=== PATIENT | female | born 1955 | race Hispanic/Latino ===

== ENCOUNTER → 2023-09-30 | Emergency (ER) | payer MEDICARE ==
[~2023-09-30] MED LIST: ACETAMINOPHEN 500 MG TAB ONE; DIPHENHYDRAMINE 50 MG/ML VIAL ONE; KETOROLAC 30 MG/ML INJ ONE; METOCLOPRAMIDE 10 MG/2mL INJ ONE; NA CHLORIDE 0.9% 1,000 ML ONE
--- OUTSIDE RECORDS SUMMARY | 2023-09-30 09:29 | XMS REPORT | Continuity of Care Document ---
Author Name Unknown Address [address] [facility] [address] [place] [address] [facility] thconnect Address [address] [facility] [address] [place] [address] Care Team Providers Care Director Workforce Management Name Role Phone PCP, PATIENT DOES NOT HAVE A Primary Care Physic davey Unavailable CHUCK YANEZ Attending Clinician Unavailable WESTLEY KWON Attending Clinician Unavailable L_Vona Attending Clinician Unavailable Katlyn Carl Attending Clinician UNKNOWN, ATTENDING Attending Clinician Unavailab stacey AMBCLARISSA_CHIARAA Attending Clinician Unavailable FAUSTINO GARY Attending Clinician Unavailable Faustino Vaz Attending Clinician [phone] Chuck Yanez MD Attending Clinician [phone] Only, Adc Test Attending Clinician Unavailable Guy Wong MD Attending Clinician [phone] GUY WONG Attending Clinician Unavailabl e Doctor Unassigned, [place] Attending Clinician U navailable G_Pappas Attending Clinician Unavailable Lab, Adc Fam Pob I Attending Clinician Unavailab CHUCK Riley Admitting Clinician Unavailable Chris_Julio Admitting Clinician Unavailable JENI Admitting Clinician Unavailable Chuck Yanez MD Admitting Clinician [phone] G_Kenyon Admitting Clinician Unavailable Payers Payer Name Policy Type Policy Number Effective Date Expirati on Date Source [facility]/[employer] MEDICARE ADVANTAGE [id number] 2020 00:00:00 [facility] (MEDICARE REPLACEMENT HMO) [id number] 2022 00:00:00 [facility] [place] - MEDICARE SOLUTIONS - MEDICARE COMPLETE (MEDICARE REPLACEMENT PPO) [id number] Problems Condition Name Condition Details Condition Category Status Onset Date Resolution Date Last Treatment Date Treating Clinician Comments Source Screening for colorectal cancer Screening for colorectal cancer Disease Active 02-23 00:00: 00 Overview: Formattin g of this note might be different from the original. Added automatic ally from request for surgery [id number] [facility] Type 2 diabetes mellitus without complicati on Type 2 Diabetes Mellitus without Complicati on Problem Active 01-15 00:00: 00 [facility] Dyspareuni a Dyspareuni a Problem Active 01-15 00:00: 00 [facility] Atrophic vaginitis Atrophic Vaginitis Problem Active 01-15 00:00: 00 [facility] Allergies, Adverse Reactions, Alerts Allergy Name Allergy Type Status Severity Reaction(s) Onset Date Inactive Date Treating Clinician Comments Source NO KNOWN ALLERGIE S Drug Class Active [facility] Social History Social Habit Start Date Stop Date Quantity Comments Source Exposure to SARS-CoV-2 (event) Not sure [facility] Alcohol intake 2021-09-17 00:00:00 2021-09-17 00:00:00 Ex-drinker (finding) [facility] Tobacco use and exposure 2021-02-20 00:00:00 2021-02-20 00:00:00 Never used [facility] Sex Assigned At 1955 00:00:00 1955 00:00:00 [facility] Smoking Status Start Date Stop Date Source Never Smoker [facility] Medications Ordered Medication Name Filled Medication Name Start Date Stop Date Current Medication? Ordering Clinician Indication Dosage Frequency Signature (SIG) Comments Components Source methocarbam oL 500 mg tablet 09-17 00:00: 00 Yes [id number] 500mg Take 1 tablet by mouth 4 (four) times daily as needed for Pain (scale 4-6). [facility] naproxen 500 mg tablet 2020-07 012 10:07: 34 Yes naproxen 500 mg tablet [facility] losartan 25 mg tablet 2020-07 012 10:07: 34 Yes losartan 25 mg tablet TAKE 1 TABLET BY MOUTH ONCE DAILY FOR KIDNEY PROTECTION [facility] naproxen 500 mg tablet 2020-07 012 10:07: 34 Yes naproxen 500 mg tablet [facility] losartan 25 mg tablet 2020-07 012 10:07: 34 Yes losartan 25 mg tablet TAKE 1 TABLET BY MOUTH ONCE DAILY FOR KIDNEY PROTECTION [facility] naproxen 500 mg tablet 2020-07 0-12 10:07: 34 Yes naproxen 500 mg tablet [facility] losartan 25 mg tablet 2020-07 012 10:07: 34 Yes losartan 25 mg tablet TAKE 1 TABLET BY MOUTH ONCE DAILY FOR KIDNEY PROTECTION [facility] metFORMIN 1,000 mg tablet 710 00:00: 00 Yes 1000mg Take 1,000 mg by mouth 2 (two) times daily. [facility] TOUJEO MAX U-300 SOLOSTAR 300 unit/mL (3 mL) In 01-20 00:00: 00 Yes INJECT 40 UNITS SUBCUTANEO USLY ONCE DAILY [facility] metFORMIN 1,000 mg tablet 01-20 00:00: 00 Yes 1000mg Take 1,000 mg by mouth 2 (two) times daily. [facility] TOUJEO MAX U-300 SOLOSTAR 300 unit/mL (3 mL) In 01-20 00:00: 00 Yes INJECT 40 UNITS SUBCUTANEO USLY ONCE DAILY [facility] metFORMIN 1,000 mg tablet 01-20 00:00: 00 Yes 1000mg Take 1,000 mg by mouth 2 (two) times daily. [facility] TOUJEO MAX U-300 SOLOSTAR 300 unit/mL (3 mL) In 01-20 00:00: 00 Yes INJECT 40 UNITS SUBCUTANEO USLY ONCE DAILY [facility] levothyroxi ne 25 mcg tablet TAKE 1 TABLET BY MOUTH IN THE MORNING WITH A SIP OF WATER. WAIT 30 MINUTES BEFORE EATING OR DRINKING ANYTHING ELSE levothyroxi ne 25 mcg tablet TAKE 1 TABLET BY MOUTH IN THE MORNING WITH A SIP OF WATER. WAIT 30 MINUTES BEFORE EATING OR DRINKING ANYTHING ELSE No levothyrox ine 25 mcg tablet TAKE 1 TABLET BY MOUTH IN THE MORNING WITH A SIP OF WATER. WAIT 30 MINUTES BEFORE EATING OR DRINKING ANYTHING ELSE [facility] OneTouch Delica Plus Lancet 33 gauge USE DIRECTED TO MONITOR BLOOD GLUCOSE THREE TIMES DAILY OneTouch Delica Plus Lancet 33 gauge USE DIRECTED TO MONITOR BLOOD GLUCOSE THREE TIMES DAILY No OneTouch Delica Plus Lancet 33 gauge USE DIRECTED TO MONITOR BLOOD GLUCOSE THREE TIMES [address] [facility] OneTouch Verio Flex Meter USE DIRECTED TO MONITOR BLOOD GLUCOSE OneTouch Verio Flex Meter USE DIRECTED TO MONITOR BLOOD GLUCOSE No OneTouch Verio Flex Meter USE DIRECTED TO MONITOR BLOOD GLUCOSE [facility] OneTouch Verio test strips USE DIRECTED TO MONITOR BLOOD GLUCOSE THREE TIMES DAILY OneTouch Verio test strips USE DIRECTED TO MONITOR BLOOD GLUCOSE THREE TIMES DAILY No OneTouch Verio test strips USE DIRECTED TO MONITOR BLOOD GLUCOSE THREE TIMES DA[address] [facility] Ozempic 0.25 mg or 0.5 mg (2 mg/1.5 mL) subcutaneou s pen injector INJECT 0.25 MG SUBCUTANEOU SLY ONCE WEEKLY Ozempic 0.25 mg or 0.5 mg (2 mg/1.5 mL) subcutaneou s pen injector INJECT 0.25 MG SUBCUTANEOU SLY ONCE WEEKLY No Ozempic 0.25 mg or 0.5 mg (2 mg/1.5 mL) subcutaneo us pen injector INJECT 0.25 MG SUBCUTANEO USLY ONCE WEEKLY [facility] Toujeo Max U-300 SoloStar 300 unit/mL (3 mL) subcutaneou s insulin pen INJECT 40 UNITS SUBCUTANEOU SLY ONCE DAILY Toujeo Max U-300 SoloStar 300 unit/mL (3 mL) subcutaneou s insulin pen INJECT 40 UNITS SUBCUTANEOU SLY ONCE DAILY No Toujeo Max U-300 SoloStar 300 unit/mL (3 mL) subcutaneo us insulin pen INJECT 40 UNITS SUBCUTANEO USLY ONCE DAILY [facility] atorvastati n 20 mg tablet TAKE 1 TABLET BY MOUTH ONCE DAILY atorvastati n 20 mg tablet TAKE 1 TABLET BY MOUTH ONCE DAILY No atorvastat in 20 mg tablet TAKE 1 TABLET BY MOUTH ONCE DAILY [facility] glimepiride 2 mg tablet TAKE 1 TABLET BY MOUTH ONCE DAILY glimepiride 2 mg tablet TAKE 1 TABLET BY MOUTH ONCE DAILY No glimepirid e 2 mg tablet TAKE 1 TABLET BY MOUTH ONCE DAILY [facility] losartan 25 mg tablet Take 1 tablet every day by oral route. losartan 25 mg tablet Take 1 tablet every day by oral route. No 1 Q1D losartan 25 mg tablet Take 1 tablet every day by oral route. [facility] metformin 1,000 mg tablet Take 1 tablet twice a day by oral route. metformin 1,000 mg tablet Take 1 tablet twice a day by oral route. No 1 BID metformin 1,000 mg tablet Take 1 tablet twice a day by oral route. [facility] Premarin 0.625 mg/gram vaginal cream insert 1/2 applicator per vagina q HS for one week, then 2-3 times a week thereafter. Premarin 0.625 mg/gram vaginal cream insert 1/2 applicator per vagina q HS for one week, then 2-3 times a week thereafter. No Premarin 0.625 mg/gram vaginal cream insert 1/2 applicator per vagina q HS for one week, then 2-3 times a week thereafter . [facility] Vital Signs Vital Name Observation Time Observation Value Comments S ource BP Diastolic 2023-01-06 00:00:00 60 mm[Hg] [facility] Height 2023-01-06 00:00:00 62 [in_i] [facility] BMI (Body Mass Index) 2023-01-06 00:00:00 25.4 kg/m2 [facility] BP Systolic 2023-01-06 00:00:00 140 mm[Hg] [facility] Body Weight 2023-01-06 00:00:00 2220.8 [oz_av] [facility] Systolic blood pressure 2021-09-17 20:19:00 145 mm[Hg] [facility] Diastolic blood pressure 2021-09-17 20:19:00 64 mm[Hg] [facility] Heart rate 2021-09-17 20:19:00 71 /min [facility] Body temperature 2021-09-17 20:19:00 37.28 Amrita [facility] Respiratory rate 2021-09-17 20:19:00 18 /min [facility] Oxygen saturation in Arterial blood by Pulse oximetry 2021-09-17 20:19:00 95 /min [facility] Body height 2021-09-17 18:54:00 162.6 cm [facility] Body weight 2021-09-17 18:54:00 63.504 kg [facility] BMI 2021-09-17 18:54:00 24.03 kg/m2 [facility] Systolic blood pressure 2021-05-08 20:51:00 139 mm[Hg] [facility] Diastolic blood pressure 2021-05-08 20:51:00 68 mm[Hg] [facility] Heart rate 2021-05-08 20:51:00 63 /min [facility] Body temperature 2021-05-08 20:51:00 36.67 Amrita [facility] Respiratory rate 2021-05-08 20:51:00 18 /min [facility] Body weight 2021-05-08 20:51:00 63.322 kg [facility] BMI 2021-05-08 20:51:00 23.96 kg/m2 [facility] Oxygen saturation in Arterial blood by Pulse oximetry 2021-05-08 20:51:00 97 /min [facility] BP Diastolic 2019-01-15 00:00:00 67 mm[Hg] [facility] Height 2019-01-15 00:00:00 64 [in_i] [facility] BMI (Body Mass Index) 2019-01-15 00:00:00 21.7 kg/m2 [facility] BP Systolic 2019-01-15 00:00:00 148 mm[Hg] [facility] Body Weight 2019-01-15 00:00:00 126.2 [lb_av] [facility] Procedures Procedure Date / Time Performed Performing Clinician Source NOTICE OF PRIVACY PRACTICES 2021-09-17 18:26:56 Doctor Unassigned, [place] [facility] CONSENT/REFUSAL FOR DIAGNOSIS AND TREATMENT 2021-09-17 18:25:18 Doctor Unassigned, [place] [facility] Hernia Repair [facility] Tumor Destruction [facility] Appendectomy [facility] Total Hysterectomy [facility] Plan of Care Planned Activity Planned Date Details Comments Source Diagnostic Test Pending 2019-01-15 00:00:00 urinalysis, dipstick [code = urinalysis, dipstick] [facility] Diagnostic Test Pending 2019-01-15 00:00:00 wet mount, vaginal [code = wet mount, vaginal] [facility] Instructions [facility] Encounters Start Date/Time End Date/Time Encounter Type Admission Type Attending Clinicians Care Facility Care Department Encounter ID Source 2021-05-15 02:19:19 Outpatient CHUCK OLSON [facility] DAVID [id number] [facility] 2023-07-21 08:49:00 2023-07-21 08:49:00 Outpatient DENIZ DOYLE [facility] [id number] [facility] 2023-01-07 00:00:00 2023-01-07 00:00:00 Outpatient L_Pena [facility] [id number] [facility] 2023-01-06 00:00:00 2023-01-06 00:00:00 Outpatient L_Pena [facility] [id number] [facility] 2023-01-06 00:00:00 2023-01-06 00:00:00 Shayna Kim APRN, MSN, [facility]-: [address] [place] [address], [address] [place] [id number] , Ph. [facility] [id number] [facility] 2022-11-26 14:00:00 2022-11-26 15:00:00 DMG Diabetes Initial Katlyn Meseret [id number] [id number] [facility] 2022-11-16 00:00:00 2022-11-16 00:00:00 Outpatient DMG DMG [id number] [facility] 2022-10-11 09:41:00 2022-10-11 09:41:00 Outpatient WESTLEY [facility] [id number] [facility] 2022-10-07 12:20:00 2022-10-07 12:20:00 Outpatient ASHLEY DENIS [facility] [id number] [facility] 2022-04-30 00:00:00 2022-04-30 00:00:00 Outpatient DMG [facility] [id number] [facility] 2022-02-07 00:00:00 2022-02-07 00:00:00 Outpatient [facility] [id number] Rajni barber [facility] 2021-09-17 12:57:00 2021-09-17 14:23:00 Emergency X FAUSTINO GARY [facility] ERT [id number] [facility] 2021-09-17 12:57:00 2021-09-17 14:23:00 Emergency Faustino Gary S [facility] [id number] [facility] 2021-05-08 15:36:49 2021-05-08 16:28:12 Office Visit Chuck Yanez [facility] [id number] [id number] [id number] [id number] [facility] 2021-05-08 16:15:00 2021-05-08 16:15:00 Outpatient R CHUCK YANEZ [facility] [id number] [facility] 2021-05-08 00:00:00 2021-05-08 00:00:00 Letter (Out) Chuck Yanez [facility] [id number] 350.1.13.10 4.2.7.2.686 [id number] [facility] 2021-04-24 06:42:00 2021-04-24 10:05:00 Hospital Encounter Chuck Yanez [facility] [id number] 350.1.13.10 4.2.7.2.686 [id number] [facility] 2021-04-24 08:25:00 2021-04-24 09:20:00 Surgery Chuck Yanez [facility] [id number] 350.1.13.10 4.2.7.2.686 [id number] [facility] 2021-04-23 10:20:19 2021-04-23 10:35:19 Laboratory Only Only, Adc Test Marvin [facility] [id number] 350.1.13.10 4.2.7.2.686 [id number] [facility] 2021-04-23 10:15:00 2021-04-23 10:15:00 Outpatient Tawanda [facility] [id number] [facility] 2021-04-20 09:17:06 2021-04-20 09:32:06 Laboratory Only Only, Adc Test Chuck Yanez [facility] [id number] 350.1.13.10 4.2.7.2.686 [id number] [facility] 2021-04-20 09:15:00 2021-04-20 09:15:00 Outpatient Tawanda CHUCK YANEZ [facility] [id number] [facility] 2021-04-20 00:00:00 2021-04-20 00:00:00 Orders Only Doctor Unassigned, [place] [facility] 1.84.114 350.1.13.10 4.2.7.2.686 [id number] [facility] 2021-02-20 14:30:00 2021-02-20 14:30:00 Outpatient CHUCK OLSON [facility] [id number] [facility] 2020-05-31 02:19:00 2020-05-31 02:19:00 Outpatient G_Pappas [facility] [id number] [facility] 2020-02-29 09:15:18 2020-02-29 09:35:18 Laboratory Only Lab, Adc Fam Pob I [facility] [address] 1..840.114 350.1.13.10 4.2.7.2.686 [id number] 2020-02-29 09:00:00 2020-02-29 09:00:00 Outpatient R [facility] [id number] [facility] 2020-02-29 00:00:00 2020-02-29 00:00:00 Letter (Out) Doctor Unassigned, [place] [facility] 1..840.114 350.1.13.10 4.2.7.2.686 [id number] 2019-01-15 00:00:00 2019-01-15 00:00:00 Sushil Prescott MD: [address], [address], [place] [address] , Ph. [phone] [facility] [id number] [facility] 2004-09-27 00:00:00 2004-09-27 13:40:06 Outpatient R [facility] [id number] [facility] Results Test Description Test Time Test Comments Results Result Co mments Source [facility]
[2023-09-30 10:21] LABS: Absolute Basophils 0.1 K/uL (0-0.5); Absolute Eosinophils 0.1 K/uL (0-0.5); Absolute Lymphocytes (CBC) 2.2 K/uL (0.7-4.9); Absolute Monocytes 1.1 K/uL (0.1-1.3); Absolute Neutrophil 10.8 K/uL (1.8-8.0); Basophils % 0.4 % (0-1.3); Eosinophils % 0.6 % (0-4.4); Hematocrit 39.4 % (36.0-45.0); Hemoglobin 13.1 g/dL (12.0-15.0); Lymphocytes % 15.8 % (15.3-44.8); MCH 29.2 pg (27.0-35.0); MCHC 33.1 g/dL (32.0-36.0); MCV 88.2 fL (80-100); MPV 9.1 fL (7.6-11.3); Monocytes % 7.4 % (3.3-12.3); Neutrophils % 75.8 % (41.7-73.7); Platelets 362 thou/uL (152-406); RBC Red Blood Cell Count 4.47 M/uL (3.86-4.86); Red Cell Distribution Width 13.3 % (12.1-15.2)
[2023-09-30 10:32] LABS: SARS-CoV-2 Antigen CONTROL BLUE LINE VIS/BG OK; SARS-CoV-2 Antigen Rapid Res Negative (Negative)
[2023-09-30 10:33] LABS: Albumin 3.4 g/dL (3.4-5.0); Albumin/Globulin Ratio 0.7 (1.1-1.8); Anion Gap 8.3 mEq/L (5.0-15.0); Bilirubin Total 0.4 mg/dL (0.2-1.0); Globulin 4.6 g/dL (2.3-3.5); Potassium 4.3 mEq/L (3.5-5.1)
--- NOTE | 2023-09-30 11:07 | RAD REPORT ---
EXAM DESCRIPTION: CT - Head Brain Wo Cont - 09/30/2023 10:22 am CLINICAL HISTORY: HEADACHE COMPARISON: No comparisons TECHNIQUE: Noncontrast head CT images were obtained without IV contrast. Multiplanar reformats were generated and reviewed. All CT scans are performed using dose optimization technique as appropriate and may include automated exposure control or mA/KV adjustment according to patient size. FINDINGS: No intracranial hemorrhage, mass, or edema. Midline structures are unremarkable. Normal ventricular caliber for age. Freedman-white matter differentiation is preserved, without evidence of acute infarct. No abnormal extra- axial fluid collections. Mastoid air cells are well aerated. Air-fluid level within the right maxillary sinus. No acute bony findings. IMPRESSION: No evidence of an acute intracranial process. Air-fluid level within the right maxillary sinus. Please correlate clinically for symptoms of acute s inusitis.
--- NOTE | 2023-09-30 11:10 | RAD REPORT ---
EXAM DESCRIPTION: Yair Single View09/30/2023 10:41 am CLINICAL HISTORY: COUGH COMPARISON: No comparisons TECHNIQUE: Portable AP view of the chest. FINDINGS: The lungs are clear. Minimal left basilar atelectasis. No pneumothorax or effusion. The c ardiomediastinal contours are unremarkable. IMPRESSION: No acute cardiopulmonary process.
[2023-09-30 13:22] LABS: Specific Gravity 1.033 (1.005-1.030); Urine Clarity Clear (Clear)
[2023-09-30 13:23] LABS: Urine Bilirubin NEGATIVE (Negative); Urine Blood Negative (Negative); Urine Color Light-Yellow (Yellow); Urine Glucose 4+ (Over) (Negative); Urine Ketones 1+ (Negative)
[2023-09-30 13:24] LABS: Sqamous Epithelial <5 /HPF (None Seen); Urine Ascorbic Acid Negative (Negative); Urine Micro Reflex YN NO BILL MICROSCOPIC; Urine Nitrite Negative (Negative); Urine Protein Negative (Negative); Urine Urobilinogen Normal mg/dL (0.2-1.0)
[2023-09-30 13:25] LABS: Urine Culture Reflex Order REFLEXED; Urine Yeast (Budding) Trace /HPF (None Seen)
--- NOTE | 2023-09-30 15:53 | ER ---
Nurse's Notes [facility] Name: Aracelis Easley Age: 67 yrs Sex: Female : 1955 Arrival Date: 09/30/2023 Time: 09:26 Bed 9 Private MD: Diagnosis: Viral infection, unspecified Presentation: 09/29 09:42 Chief complaint: Patient states: Bad YOUNG and neck pain getting worse since Friday. L jj7 hand feels "sleepy" since Friday also. + chills and nausea. Coronavirus screen: Client denies travel out of the [place] in the last 14 days. At this time, the client does not indicate any symptoms associated with coronavirus-19. Ebola Screen: Patient denies travel to an Ebola-affected area in the 21 days before illness onset. Initial Sepsis Screen: Does the patient meet any 2 criteria? No. Patient's initial sepsis screen is negative. Does the patient have a suspected source of infection? No. Patient's initial sepsis screen is negative. Risk Assessment: Do you want to hurt yourself or someone else? Patient reports no desire to harm self or others. Onset of symptoms was September 26, 2023. 09:42 Method Of Arrival: Ambulatory [facility] 09:42 Acuity: LASHAUN 2 j7 Triage Assessment: 09:44 General: Appears in no apparent distress. Behavior is calm, cooperative, appropriate j for age. Pain: Complains of pain in head Pain radiates to neck Pain began 2-3 days ago. Neuro: Reports headache. GI: Reports nausea. 14:03 Headache History: Denies prior headaches. Pain: Also complains of. Pain: Pain currently kb3 is 3 out of 10 on a pain scale. Historical: - Allergies: 09:44 No Known Allergies; jj7 - Home Meds: 13:45 Enalapril Oral [Active]; Toujeo SoloStar U-300 Insulin 300 unit/mL (1.5 mL) kb3 subcutaneous Insulin Pen 40 units daily [Active]; levothyroxine oral [Active]; Farxiga 10 mg oral tablet 1 tab daily [Active]; - PMHx: 09:42 diabetes mellitus; jj7 - Immunization history:: Adult Immunizations up to date. - Social history:: Smoking status: Patient denies any tobacco usage or history of. Screenin:02 [facility] ED Fall Risk Assessment (Adult) History of falling in the last 3 months, kb3 including since admission No falls in past 3 months (0 pts) Confusion or Disorientation No (0 pts) Intoxicated or Sedated No (0 pts) Impaired Gait No (0 pts) Mobility Assist Device Used No (0 pt) Altered Elimination No (0 pt) Score/Fall Risk Level 0 - 2 = Low Risk Oriented to surroundings, Maintained a safe environment, Educated pt \\T\\ family on fall prevention, incl call for assistance when getting out of bed, Assessed \\T\\ reinforced patient's understanding of fall precautions, Hourly rounding (assess needs \\T\\ fall precautionary measures) done, Used ambulatory aids as needed (educated on \\T\\ assisted with), Used gait belt as appropriate. Abuse screen: Denies threats or abuse. Denies injuries from another. Nutritional screening: No deficits noted. On. Tuberculosis screening: No symptoms or risk factors identified. Assessment: 12:20 General: Appears in no apparent distress. Behavior is calm, cooperative. Pain: kb3 Complains of pain in head. Neuro: Level of Consciousness is awake, alert, obeys commands, Oriented to person, place, time, situation, Speech is normal, Facial symmetry appears normal. Cardiovascular: Capillary refill < 3 seconds Patient's skin is warm and dry. Respiratory: Breath sounds are clear bilaterally. Denies cough, shortness of breath. GI: No deficits noted. No signs and/or symptoms were reported involving the gastrointestinal system. : No deficits noted. No signs and/or symptoms were reported regarding the genitourinary system. EENT: No deficits noted. No signs and/or symptoms were reported regarding the EENT system. Derm: No deficits noted. No signs and/or symptoms reported regarding the dermatologic system. Musculoskeletal: No deficits noted. No signs and/or symptoms reported regarding the musculoskeletal system. Vital Signs: 09:42 BP 131 / 66; Pulse 92; Resp 18; Temp 98.4; Pulse Ox 97% on R/A; jj7 14:01 BP 112 / 57; Pulse 62; Resp 18; Temp 97.4(TE); Pulse Ox 96% ; Pain 3/10; kb3 14:01 Pain Scale: Adult kb3 ED Course: 09:27 Patient arrived in ED. rg4 09:31 Hunt, Dereck, MD is Attending Physician. ec2 09:42 Arm band placed on. jj7 09:44 Triage completed. jj7 10:16 Initial lab(s) drawn, by me, sent to lab. COVID swab sent to lab. Flu and/or RSV swab ap3 sent to lab. Inserted saline lock: 22 gauge in right antecubital area, using aseptic technique. Blood collected. 10:17 SARS RAPID Sent. ap3 10:17 Influenza Screen (a \\T\\ B) Sent. ap3 10:17 CMP Sent. ap3 10:17 CBC with Diff Sent. ap3 10:24 CT Head Brain wo Cont In Process Unspecified. EDMS 10:43 CXR XRAY In Process Unspecified. EDMS 11:59 Jeffrey Mar, POORNIMA is Primary Nurse. tl4 14:02 No provider procedures requiring assistance completed. IV discontinued, intact, kb3 bleeding controlled, No redness/swelling at site. Pressure dressing applied. 14:03 Patient has correct armband on for positive identification. Placed in gown. Bed in low kb3 position. Call light in reach. Side rails up X2. Adult w/ patient. Provided Education on: ED process. Client placed on continuous cardiac and pulse oximetry monitoring. NIBP monitoring applied. Door closed. Noise minimized. Moved to private room. Warm blanket given. Administered Medications: 10:40 Drug: NS 0.9% IV 1000 ml IV at 1 bolus Per protocol; 1000 mL bolus Route: IV; Rate: 1 ap3 bolus; Site: left antecubital; 14:01 Follow up: Response: No adverse reaction; IV Status: Completed infusion; IV Intake: kb3 1000ml 10:40 Drug: Ketorolac IVP 15 mg IVP once Route: IVP; Site: left antecubital; ap3 14:01 Follow up: Response: No adverse reaction; Pain is decreased kb3 10:40 Drug: metoCLOPramide IVP 10 mg IVP once; over 1 to 2 minutes Route: IVP; Site: left ap3 antecubital; 14:01 Follow up: Response: No adverse reaction; Pain is decreased kb3 10:40 Drug: diphenhydrAMINE IVP 25 mg IVP once Route: IVP; Site: left antecubital; ap3 14:01 Follow up: Response: No adverse reaction; Pain is decreased kb3 10:40 Drug: Acetaminophen PO 1000 mg PO once Route: PO; ap3 14:00 Follow up: Response: No adverse reaction; Pain is decreased kb3 Medication: 14:02 VIS not applicable for this client. kb3 Intake: 14:01 IV: 1000ml; Total: 1000ml. kb3 Outcome: 13:26 Discharge ordered by . ec2 14:03 Discharged to home ambulatory, with family, kb3 14:03 Condition: stable 14:03 Discharge instructions given to patient, family, Instructed on discharge instructions, follow up and referral plans. medication usage, Demonstrated understanding of instructions, follow-up care, medications, 14:04 Patient left the ED. kb3 Signatures: Dispatcher [employer] Lisseth Astorga rg4 Gracia Borges RN RN ap3 Roxie Lee RN RN kb3 Chela Bowser RN RN jj7 Dereck Hunt MD MD ec2 Jeffrey Mar RN RN tl4
--- NOTE | 2023-09-30 15:53 | EDPHYS ---
Physician Documentation [facility] Name: Aracelis Easley Age: 67 yrs Sex: Female : 1955 Arrival Date: 09/30/2023 Time: 09:26 Bed 9 Private MD: ED Physician Dereck Hunt HPI: 09/29 09:47 This 67 yrs old Female presents to ER via Ambulatory with complaints of ec2 Headache, Neck Pain, <24hrs Old. 09:47 Patient arrives today for evaluation of headache, myalgias as well as cough and cold ec2 symptoms. Patient reports approximately 4 days of symptoms. Patient reports she is been taking Tylenol with minimal alleviation symptoms. Patient reports some associated nausea, decreased p.o. intake as well as subjective fevers and chills and bodyaches.. Historical: - Allergies: 09:44 No Known Allergies; jj7 - Home Meds: 13:45 Enalapril Oral [Active]; Toujeo SoloStar U-300 Insulin 300 unit/mL (1.5 mL) kb3 subcutaneous Insulin Pen 40 units daily [Active]; levothyroxine oral [Active]; Farxiga 10 mg oral tablet 1 tab daily [Active]; - PMHx: 09:42 diabetes mellitus; jj7 - Immunization history:: Adult Immunizations up to date. - Social history:: Smoking status: Patient denies any tobacco usage or history of. ROS: 09:47 Constitutional: as per hpi ec2 Exam: 09:47 Constitutional: GEN: NAD Head: atraumatic Eyes: EOMI Ears: External ears are ec2 normal. CV: regular rate LUNGS: no respiratory distress ABD: non-distended SKIN: no evidence of rashes MSK: no evidence of trauma, general TTP to the bilateral trapezius as well as mid and upper back, no evidence of trauma, soft, nontender, no guarding, not rigid NEURO: moves all extremities equally, cranial nerves II through XII intact, strength intact all 4 extremities. Vital Signs: 09:42 BP 131 / 66; Pulse 92; Resp 18; Temp 98.4; Pulse Ox 97% on R/A; jj7 14:01 BP 112 / 57; Pulse 62; Resp 18; Temp 97.4(TE); Pulse Ox 96% ; Pain 3/10; kb3 14:01 Pain Scale: Adult kb3 MDM: 09:46 Patient medically screened. ec2 09:47 Data reviewed: vital signs. ED course: Patient arrives today for URI signs symptoms as ec2 well as headache and neck pain. Examination remarkable for well-appearing nontoxic dividual with an intact neurologic examination. Will obtain lab work, CT imaging of the head, viral swabs as well as giving the patient crystalloid, antiemetic and medications for her symptoms. I suspect viral infection causing patient's symptoms, evaluate for intracranial mass as well, electrolyte disturbances. Doubt meningitis or encephalitis given the patient's general well appearance.. 10:57 ED course: CBC shows leukocytosis of 14.2. Metabolic profile shows appropriate ec2 electrolytes, appropriate renal function. Flu and COVID testing negative. . 11:39 ED course: Ct scan of the head shows no acute intracranial process, does show sinusitis ec2 which is consistent w/ the patient's complaints. Suspect viral infection given the duration of symptoms of approximately 3-4 days, will defer abx coverage at this point. . 13:27 ED course: On reassessment patient with marked improvement in symptoms. Will discharge ec2 home, suspect viral infection. Additionally considered meningitis however patient with marked improvement in her symptoms. Patient otherwise well-appearing in no acute distress and nontoxic-appearing. Return precautions given.. 03 09:47 Order name: CBC with Diff; Complete Time: 10:57 ec2 09/29 09:47 Order name: CMP; Complete Time: 10:57 ec2 09/29 09:47 Order name: UAM ec2 09/29 09:47 Order name: Influenza Screen (a \T\ B); Complete Time: 10:57 ec2 09/29 09:47 Order name: SARS RAPID; Complete Time: 10:57 ec2 09/29 09:47 Order name: CXR XRAY; Complete Time: 11:38 ec2 09/29 09:47 Order name: CT Head Brain wo Cont; Complete Time: 11:38 ec2 Administered Medications: 10:40 Drug: NS 0.9% IV 1000 ml IV at 1 bolus Per protocol; 1000 mL bolus Route: IV; Rate: 1 ap3 bolus; Site: left antecubital; 14:01 Follow up: Response: No adverse reaction; IV Status: Completed infusion; IV Intake: kb3 1000ml 10:40 Drug: Ketorolac IVP 15 mg IVP once Route: IVP; Site: left antecubital; ap3 14:01 Follow up: Response: No adverse reaction; Pain is decreased kb3 10:40 Drug: metoCLOPramide IVP 10 mg IVP once; over 1 to 2 minutes Route: IVP; Site: left ap3 antecubital; 14:01 Follow up: Response: No adverse reaction; Pain is decreased kb3 10:40 Drug: diphenhydrAMINE IVP 25 mg IVP once Route: IVP; Site: left antecubital; ap3 14:01 Follow up: Response: No adverse reaction; Pain is decreased kb3 10:40 Drug: Acetaminophen PO 1000 mg PO once Route: PO; ap3 14:00 Follow up: Response: No adverse reaction; Pain is decreased kb3 Disposition Summary: 09/30/23 13:26 Discharge Ordered Notes: Location: Home ec2 Condition: Stable ec2 Diagnosis - Viral infection, unspecified ec2 Followup: ec2 - With: Private Physician - When: - Reason: Re-evaluation by your physician Discharge Instructions: - Discharge Summary Sheet ec2 - Viral Illness, Adult ec2 Forms: - Medication Reconciliation Form ec2 - Thank You Letter ec2 - Antibiotic Education ec2 - Prescription Opioid Use ec2 - Patient Portal Instructions ec2 - Leadership Thank You Letter ec2 Signatures: Dispatcher [employer] Gracia West RN RN ap3 Roxie Lee RN RN jesi3 Chela Bowser RN RN jj7 Dereck Hunt MD MD ec2
[2023-09-30 16:26] VITALS: BP 112/57; TEMP 97.4; O2SAT 96
== END ==
LOC: ER 09:26
DX: B34.9 Viral infection, unspecified (principal); M54.2 Cervicalgia; E11.9 Type 2 diabetes mellitus without complications; Z79.4 Long term (current) use of insulin; Z11.52 Encounter for screening for COVID-19
CPT/HCPCS: 87088; 85025; 81001; 87086; 36415; 80053; 87804 ×2; 70450; 71045; 87811; J2765; J1200; J7030

== ENCOUNTER 2023-11-09 12:36 | Emergency (ER) | payer MEDICARE ==
--- OUTSIDE RECORDS SUMMARY | 2023-11-09 12:43 | XMS REPORT | Continuity of Care Document ---
Author Name Unknown Address [address] [facility] [address] [place] [address] [facility] thconnect Address [address] [facility] [address] [place] [address] Care Team Providers Care Survey Worker Name Role Phone PCP, PATIENT DOES NOT HAVE A Primary Care Physic davey Unavailable CHUCK YANEZ Attending Clinician Unavailable WESTLEY KWON Attending Clinician Unavailable L_Vona Attending Clinician Unavailable Katlyn Carl Attending Clinician [phone] UNKNOWN, ATTENDING Attending Clinician Unavailab stacey AMBCLARISSA_CHIARAA Attending Clinician Unavailable FAUSTINO GARY Attending Clinician Unavailable Faustino Vaz Attending Clinician [phone] Chuck Yanez MD Attending Clinician [phone] Only, Adc Test Attending Clinician Unavailable Guy Wong MD Attending Clinician [phone] GUY WONG Attending Clinician Unavailabl e Doctor Unassigned, [place] Attending Clinician U navailable G_Pappas Attending Clinician Unavailable Lab, Adc Fam Pob I Attending Clinician Unavailab CHUCK Riley Admitting Clinician Unavailable Chris_Julio Admitting Clinician Unavailable JENI Admitting Clinician Unavailable Chuck Yanez MD Admitting Clinician [phone] G_Kenyon Admitting Clinician Unavailable Payers Payer Name Policy Type Policy Number Effective Date Expirati on Date Source [facility]/[employer] MEDICARE ADVANTAGE [id number] 2020 00:00:00 [facility] (MEDICARE REPLACEMENT HMO) [id number] 2022 00:00:00 [facility] - MEDICARE SOLUTIONS - MEDICARE COMPLETE (MEDICARE REPLACEMENT PPO) [id number] Problems Condition Name Condition Details Condition Category Status Onset Date Resolution Date Last Treatment Date Treating Clinician Comments Source Screening for colorectal cancer Screening for colorectal cancer Disease Active 02-23 00:00: 00 Overview: Formattin g of this note might be different from the original. Added automatic ally from request for surgery [id number] [facility] Type 2 diabetes mellitus without complicati on [...] NO KNOWN ALLERGIE S Drug Class Active [facility] Social History Social Habit Start Date Stop Date Quantity Comments Source Exposure to SARS-CoV-2 (event) Not sure [facility] Alcohol intake 2021-09-17 00:00:00 2021-09-17 00:00:00 Ex-drinker (finding) [facility] Tobacco use and exposure 2021-02-20 00:00:00 2021-02-20 00:00:00 Never used [facility] Sex Assigned At 1955 00:00:00 1955 00:00:00 [facility] Smoking Status Start Date Stop Date Source Never Smoker [facility] Medications Ordered Medication Name Filled Medication Name Start Date Stop Date Current Medication? Ordering Clinician Indication Dosage Frequency Signature (SIG) Comments Components Source methocarbam oL 500 mg tablet 09-17 00:00: 00 Yes [id number] 500mg Take 1 tablet by mouth 4 (four) times daily as needed for Pain (scale 4-6). [facility] naproxen 500 mg tablet 2020-07 012 10:07: 34 Yes naproxen 500 mg tablet [facility] losartan 25 mg tablet 2020-07 0-12 10:07: 34 Yes losartan 25 mg tablet TAKE 1 TABLET BY MOUTH ONCE DAILY FOR KIDNEY PROTECTION [facility] metFORMIN 1,000 mg tablet 7-10 00:00: 00 Yes 1000mg Take 1,000 mg by mouth 2 (two) times daily. [facility] levothyroxi ne 25 mcg tablet TAKE 1 [...] MINUTES BEFORE EATING OR DRINKING ANYTHING ELSE [facility] OneTouch Delica Plus Lancet 33 gauge USE DIRECTED TO MONITOR BLOOD GLUCOSE THREE TIMES DAILY OneTouch Delica Plus Lancet 33 gauge USE DIRECTED TO MONITOR BLOOD GLUCOSE THREE TIMES DAILY No OneTouch Delica Plus Lancet 33 gauge USE DIRECTED TO MONITOR BLOOD GLUCOSE THREE TIMES DAILY [facility] OneTouch Verio Flex Meter USE DIRECTED TO MONITOR BLOOD GLUCOSE OneTouch Verio Flex Meter USE DIRECTED TO MONITOR BLOOD GLUCOSE No OneTouch Verio Flex Meter USE DIRECTED TO MONITOR BLOOD GLUCOSE [facility] OneTouch Verio test strips USE DIRECTED TO MONITOR BLOOD GLUCOSE THREE TIMES DAILY OneTouch Verio test strips USE DIRECTED TO MONITOR BLOOD GLUCOSE THREE TIMES DAILY No OneTouch Verio test strips USE DIRECTED TO MONITOR BLOOD GLUCOSE THREE TIMES DAILY [facility] Ozempic 0.25 mg or 0.5 mg (2 mg/1.5 mL) subcutaneou s pen injector INJECT 0.25 MG SUBCUTANEOU SLY ONCE WEEKLY Ozempic 0.25 mg or 0.5 mg (2 mg/1.5 mL) subcutaneou s pen injector INJECT 0.25 MG SUBCUTANEOU SLY ONCE WEEKLY No Ozempic 0.25 mg or 0.5 mg (2 mg/1.5 mL) subcutaneo us pen injector INJECT 0.25 MG SUBCUTANEO USLY ONCE WEEKLY [facility] Toujeo Max U-300 SoloStar 300 unit/mL (3 mL) subcutaneou s insulin pen INJECT 40 UNITS SUBCUTANEOU SLY ONCE DAILY Toujeo Max U-300 SoloStar 300 unit/mL (3 mL) subcutaneou s insulin pen INJECT 40 UNITS SUBCUTANEOU SLY ONCE DAILY No Toujeo Max U-300 SoloStar 300 unit/mL (3 mL) subcutaneo us insulin pen INJECT 40 UNITS SUBCUTANEO USLY ONCE DAILY [facility] atorvastati n 20 mg tablet TAKE 1 TABLET BY MOUTH ONCE DAILY atorvastati n 20 mg tablet TAKE 1 TABLET BY MOUTH ONCE DAILY No atorvastat in 20 mg tablet TAKE 1 TABLET BY MOUTH ONCE DAILY [facility] glimepiride 2 mg tablet TAKE 1 TABLET BY MOUTH ONCE DAILY glimepiride 2 mg tablet TAKE 1 TABLET BY MOUTH ONCE DAILY No glimepirid e 2 mg tablet TAKE 1 TABLET BY MOUTH ONCE DAILY [facility] metformin 1,000 mg tablet Take 1 tablet twice a day by oral route. metformin 1,000 mg tablet Take 1 tablet twice a day by oral route. No 1 BID metformin 1,000 mg tablet Take 1 tablet twice a day by oral route. [facility] Premarin 0.625 mg/gram vaginal cream insert 1/2 [...] then 2-3 times a week thereafter . [facility] Vital Signs Vital Name Observation Time Observation Value Comments S ource BP Diastolic 2023-01-06 00:00:00 60 mm[Hg] [facility] Height 2023-01-06 00:00:00 62 [in_i] [facility] BMI (Body Mass Index) 2023-01-06 00:00:00 25.4 kg/m2 [facility] BP Systolic 2023-01-06 00:00:00 140 mm[Hg] [facility] Body Weight 2023-01-06 00:00:00 2220.8 [oz_av] [facility] Systolic blood pressure 2021-09-17 20:19:00 145 mm[Hg] [facility] Diastolic blood pressure 2021-09-17 20:19:00 64 mm[Hg] [facility] Heart rate 2021-09-17 20:19:00 71 /min [facility] Body temperature 2021-09-17 20:19:00 37.28 Amrita [facility] Respiratory rate 2021-09-17 20:19:00 18 /min [facility] Oxygen saturation in Arterial blood by Pulse oximetry 2021-09-17 20:19:00 95 /min [facility] Body height 2021-09-17 18:54:00 162.6 cm [facility] Body weight 2021-09-17 18:54:00 63.504 kg [facility] BMI 2021-09-17 18:54:00 24.03 kg/m2 [facility] Systolic blood pressure 2021-05-08 20:51:00 139 mm[Hg] [facility] Diastolic blood pressure 2021-05-08 20:51:00 68 mm[Hg] [facility] Heart rate 2021-05-08 20:51:00 63 /min Unive [facility] Body temperature 2021-05-08 20:51:00 36.67 Amrita [facility] Respiratory rate 2021-05-08 20:51:00 18 /min [facility] Body weight 2021-05-08 20:51:00 63.322 kg [facility] BMI 2021-05-08 20:51:00 23.96 kg/m2 [facility] Oxygen saturation in Arterial blood by Pulse oximetry 2021-05-08 20:51:00 97 /min [facility] BP Diastolic 2019-01-15 00:00:00 67 mm[Hg] [facility] Height 2019-01-15 00:00:00 64 [in_i] [facility] BMI (Body Mass Index) 2019-01-15 00:00:00 21.7 kg/m2 [facility] BP Systolic 2019-01-15 00:00:00 148 mm[Hg] [facility] Body Weight 2019-01-15 00:00:00 126.2 [lb_av] [facility] Procedures Procedure Date / Time Performed Performing Clinician Source NOTICE OF PRIVACY PRACTICES 2021-09-17 18:26:56 Doctor Unassigned, [place] [facility] CONSENT/REFUSAL FOR DIAGNOSIS AND TREATMENT 2021-09-17 18:25:18 Doctor Unassigned, [place] [facility] Hernia Repair [facility] Tumor Destruction [facility] Appendectomy [facility] Total Hysterectomy [facility] Plan of Care Planned Activity Planned Date Details Comments Source Diagnostic Test Pending 2019-01-15 00:00:00 wet mount, vaginal [code = wet mount, vaginal] [facility] Diagnostic Test Pending 2019-01-15 00:00:00 urinalysis, dipstick [code = urinalysis, dipstick] [facility] Instructions [facility] Encounters Start Date/Time End Date/Time Encounter Type Admission Type Attending [facility] Facility Care Department Encounter ID Source 2021-05-15 02:19:19 Outpatient CHUCK OLSON [facility] [id number] [facility] 2023-07-21 08:49:00 2023-07-21 08:49:00 Outpatient [facility] [id number] [facility] 2023-01-07 00:00:00 2023-01-07 00:00:00 Outpatient L_Pena [facility] [id number] [facility] 2023-01-06 00:00:00 2023-01-06 00:00:00 Outpatient [facility] [id number] [facility] 2023-01-06 00:00:00 2023-01-06 00:00:00 Shayna Kim APRN, MSN, [facility]-: [address] [place] [address], [address] [place] [phone] , Ph. [facility] [id number] [facility] 2022-11-26 14:00:00 2022-11-26 15:00:00 DMG Diabetes Initial Katlyn Meseret [id number] [facility] 2022-11-16 00:00:00 2022-11-16 00:00:00 Outpatient DMG DMG [id number] [facility] 2022-10-11 09:41:00 2022-10-11 09:41:00 Outpatient [facility] [id number] Rajni barber [facility] 2022-10-07 12:20:00 2022-10-07 12:20:00 Outpatient R UNKNOWN, ATTENDING [facility] [id number] [facility] 2022-04-30 00:00:00 2022-04-30 00:00:00 Outpatient DMG DM [id number] [facility] 2022-02-07 00:00:00 2022-02-07 00:00:00 Outpatient AMBREEN_CASPER CORDERO [facility] [id number] Rajni barber [facility] Program 2021-09-17 12:57:00 2021-09-17 14:23:00 Emergency X FAUSTINO GARY [facility] ERT [id number] [facility] 2021-09-17 12:57:00 2021-09-17 14:23:00 Emergency Faustino Gary S [facility] [id number] [id number] [id number] [id number] [facility] 2021-05-08 15:36:49 2021-05-08 16:28:12 Office Visit Chuck Yanez [facility] [id number] [id number] [id number] [id number] [facility] 2021-05-08 16:15:00 2021-05-08 16:15:00 Outpatient R CHUCK YANEZ [facility] [id number] [facility] 2021-05-08 00:00:00 2021-05-08 00:00:00 Letter (Out) Chuck Yanez [facility] [id number] [id number] [id number] [id number] [facility] 2021-04-24 06:42:00 2021-04-24 10:05:00 Hospital Encounter Chuck Yanez [facility] [place] [id number] 350.1.13.10 4.2.7.2.686 [id number] [facility] 2021-04-24 08:25:00 2021-04-24 09:20:00 Surgery Chuck Yanez [facility] [place] [id number] 350.1.13.10 4.2.7.2.686 [id number] [facility] 2021-04-23 10:20:19 2021-04-23 10:35:19 Laboratory Only Only, Adc Test Marvin [facility] [id number] 350.1.13.10 4.2.7.2.686 [id number] [facility] 2021-04-23 10:15:00 2021-04-23 10:15:00 Outpatient R MARVIN [facility] [id number] [facility] 2021-04-20 09:17:06 2021-04-20 09:32:06 Laboratory Only Only, Adc Test Chuck Yanez [facility] [id number] 350.1.13.10 4.2.7.2.686 [id number] [facility] 2021-04-20 09:15:00 2021-04-20 09:15:00 Outpatient R [facility] [id number] [facility] 2021-04-20 00:00:00 2021-04-20 00:00:00 Orders Only Doctor Unassigned, [place] [facility] 1.2.840.114 350.1.13.10 4.2.7.2.686 [id number] [facility] 2021-02-20 14:30:00 2021-02-20 14:30:00 Outpatient R CHUCK YANEZ [facility] [id number] [facility] 2020-05-31 02:19:00 2020-05-31 02:19:00 Outpatient Gill [facility] [id number] [facility] 2020-02-29 09:15:18 2020-02-29 09:35:18 Laboratory Only Lab, Adc Fam Pob I [facility] Office [facility] 1..840.114 350.1.13.10 4.2.7.2.686 [id number] 2020-02-29 09:00:00 2020-02-29 09:00:00 Outpatient R [facility] [id number] [facility] 2020-02-29 00:00:00 2020-02-29 00:00:00 Letter (Out) Doctor Unassigned, [place] [facility] 1..840.114 350.1.13.10 4.2.7.2.686 [id number] 2019-01-15 00:00:00 2019-01-15 00:00:00 Sushil Prescott MD: [address], [address], [place] [address] , Ph. [phone] [facility] [facility]YN [id number] [facility] 2004-09-27 00:00:00 2004-09-27 13:40:06 Outpatient R [facility] [id number] [facility] Results Test Description Test Time Test Comments Results Result Co mments Source [facility]
[2023-11-09] MEDS ORDERED: MORPHINE 2 MG/ML SYR ONE (14:40)
[2023-11-09] MEDS ORDERED: MORPHINE 4 MG/ML SYR ONE (14:40)
--- NOTE | 2023-11-09 15:15 | RAD REPORT ---
EXAM DESCRIPTION: RAD - Hip Left 2 View - 11/09/2023 2:51 pm CLINICAL HISTORY: Left hip pain FINDINGS: No fracture or dislocation is seen. Bones appear osteoporotic. Mild osteoarthritis left hip consisting of joint space narrowing and subchondral sclerosis
--- NOTE | 2023-11-09 15:51 | ER ---
Nurse's Notes [facility] Name: Aracelis Easley Age: 67 yrs Sex: Female : 1955 Arrival Date: 11/09/2023 Time: 12:36 Bed 16 Private MD: Diagnosis: Osteoarthritis of hip, unspecified;Pain in left hip Presentation: 11/08 12:57 Chief complaint: Patient states: Left hip/upper leg pain since yesterday, worse with nj1 weight bearing and movement. Denies injury. Took a gabapentin earlier today with no relief. Coronavirus screen: Vaccine status: Patient reports receiving the 2nd dose of the covid vaccine. 12:57 Method Of Arrival: Wheelchair [facility] 12:57 Ebola Screen: Patient denies travel to an Ebola-affected area in the 21 days before [facility] illness onset. Initial Sepsis Screen: Does the patient meet any 2 criteria? No. Patient's initial sepsis screen is negative. Does the patient have a suspected source of infection? No. Patient's initial sepsis screen is negative. Risk Assessment: Do you want to hurt yourself or someone else? Patient reports no desire to harm self or others. Onset of symptoms was November 08, 2023. 12:57 Acuity: LASHAUN 3 nj1 Historical: - Allergies: 13:08 Kenalog; nj1 - PMHx: 13:08 diabetes mellitus; Hypercholesterolemia; nj1 - Immunization history:: Client reports receiving the 2nd dose of the Covid vaccine. - Infectious Disease History:: Denies. - Social history:: Smoking status: Patient denies any tobacco usage or history of. Screenin:22 [facility] ED Fall Risk Assessment (Adult) History of falling in the last 3 months, as6 including since admission No falls in past 3 months (0 pts) Confusion or Disorientation No (0 pts) Intoxicated or Sedated No (0 pts) Impaired Gait Yes (1 pt) Mobility Assist Device Used Yes (1 pt) Altered Elimination No (0 pt) Score/Fall Risk Level 0 - 2 = Low Risk Oriented to surroundings, Maintained a safe environment, Educated pt \T\ family on fall prevention, incl call for assistance when getting out of bed, Assessed \T\ reinforced patient's understanding of fall precautions. Abuse screen: Denies threats or abuse. Denies injuries from another. Nutritional screening: No deficits noted. Tuberculosis screening: No symptoms or risk factors identified. Assessment: 13:30 General: Appears uncomfortable, Behavior is calm, cooperative, restless. Pain: as6 Complains of pain in left hip and left leg. Neuro: Level of Consciousness is awake, alert, obeys commands, Oriented to person, place, time, situation. Cardiovascular: Capillary refill < 3 seconds Patient's skin is warm and dry. Respiratory: Respiratory effort is even, unlabored, Respiratory pattern is regular, symmetrical. GI: No deficits noted. No signs and/or symptoms were reported involving the gastrointestinal system. : No deficits noted. No signs and/or symptoms were reported regarding the genitourinary system. EENT: No deficits noted. No signs and/or symptoms were reported regarding the EENT system. Derm: Skin is intact, is healthy with good turgor. Musculoskeletal: Range of motion: limited in left hip. 15:23 Reassessment: Patient appears in no apparent distress at this time. as6 Vital Signs: 12:57 BP 149 / 64; Pulse 66; Resp 18; Temp 97.2(O); Pulse Ox 97% on R/A; Weight 58.97 kg (R); nj1 Height 5 ft. 3 in. ; Pain 10/10; 14:00 BP 154 / 66; Pulse 64; Resp 18 S; Pulse Ox 98% on R/A; as6 15:00 BP 133 / 66; Pulse 63; Resp 15 S; Pulse Ox 99% on R/A; as6 15:51 BP 151 / 67; Pulse 66; Resp 18 S; Pulse Ox 99% on R/A; as6 12:57 Body Mass Index 23.03 (58.97 kg, 160.02 cm) nj1 12:57 Pain Scale: Adult nj1 ED Course: 12:41 Patient arrived in ED. im 12:56 Leandro Obregon, POORNIMA is Primary Nurse. as6 13:08 Triage completed. nj1 13:09 Arm band placed on. nj1 13:19 Christina Kearney MD is Attending Physician. gb1 13:30 Placed in gown. Bed in low position. Call light in reach. Side rails up X2. Client as6 placed on continuous cardiac and pulse oximetry monitoring. NIBP monitoring applied. Warm blanket given. 14:53 Hip Left 2 View XRAY In Process Unspecified. EDMS 15:50 Jamir Rios MD is Referral Physician. gb1 15:52 No provider procedures requiring assistance completed. Patient did not have IV access as6 during this emergency room visit. 16:04 Provided Education on: need for follow up. as6 Administered Medications: 14:45 Drug: morphine IM 5 mg IM once Route: IM; Site: right ventrogluteal; as6 15:52 Follow up: Response: No adverse reaction as6 Medication: 15:22 VIS not applicable for this client. as6 Outcome: 15:50 Discharge ordered by . gb1 15:52 Condition: stable as6 16:03 Discharged to home with family, as6 16:03 Discharge instructions given to patient, family, Instructed on discharge instructions, follow up and referral plans. medication usage, Demonstrated understanding of instructions, follow-up care, medications, Prescriptions given X 1, 16:12 Patient left the ED. as6 Signatures: Dispatcher [employer] [facility] Leandro Obregon RN RN as6 Anali Vail RN RN nj1 Lori Olivia Gina, MD MD gb1
--- NOTE | 2023-11-09 15:51 | EDPHYS ---
Physician Documentation [facility] Name: Aracelis Easley Age: 67 yrs Sex: Female : 1955 Arrival Date: 11/09/2023 Time: 12:36 Bed 16 Private MD: ED Physician Christina Kearney HPI: 11/08 15:52 This 67 yrs old Female presents to ER via Wheelchair with complaints of Leg gb1 Pain. 15:52 67-year-old female with left hip pain. Patient denies falls or any trauma. She denies gb1 any urinary incontinence or discomfort. Denies any fever or chills. Patient states it hurts to walk. She is able to do so unassisted.. Historical: - Allergies: 13:08 Kenalog; nj1 - PMHx: 13:08 diabetes mellitus; Hypercholesterolemia; nj1 - Immunization history:: Client reports receiving the 2nd dose of the Covid vaccine. - Infectious Disease History:: Denies. - Social history:: Smoking status: Patient denies any tobacco usage or history of. Exam: 15:52 Constitutional: This is a well developed, well nourished patient who is awake, alert, gb1 and in no acute distress. Head/Face: Normocephalic, atraumatic. Eyes: Pupils equal round and reactive to light, extra-ocular motions intact. Lids and lashes normal. Conjunctiva and sclera are non-icteric and not injected. Cornea within normal limits. Periorbital areas with no swelling, redness, or edema. ENT: Nares patent. No nasal discharge, no septal abnormalities noted. Tympanic membranes are normal and external auditory canals are clear. Oropharynx with no redness, swelling, or masses, exudates, or evidence of obstruction, uvula midline. Mucous membranes moist. Neck: Trachea midline, no thyromegaly or masses palpated, and no cervical lymphadenopathy. Supple, full range of motion without nuchal rigidity, or vertebral point tenderness. No Meningismus. Chest/axilla: Normal chest wall appearance and motion. Nontender with no deformity. No lesions are appreciated. Cardiovascular: Regular rate and rhythm with a normal S1 and S2. No gallops, murmurs, or rubs. Normal PMI, no JVD. No pulse deficits. Respiratory: Lungs have equal breath sounds bilaterally, clear to auscultation and percussion. No rales, rhonchi or wheezes noted. No increased work of breathing, no retractions or nasal flaring. Abdomen/GI: Soft, non-tender, with normal bowel sounds. No distension or tympany. No guarding or rebound. No evidence of tenderness throughout. Back: No spinal tenderness. No costovertebral tenderness. Full range of motion. Skin: Warm, dry with normal turgor. Normal color with no rashes, no lesions, and no evidence of cellulitis. MS/ Extremity: Pulses equal, no cyanosis. Neurovascular intact. Full, normal range of motion. Neuro: Awake and alert, GCS 15, oriented to person, place, time, and situation. Cranial nerves II-XII grossly intact. Motor strength 5/5 in all extremities. Sensory grossly intact. Cerebellar exam normal. Normal gait. Psych: Awake, alert, with orientation to person, place and time. Behavior, mood, and affect are within normal limits. Vital Signs: 12:57 BP 149 / 64; Pulse 66; Resp 18; Temp 97.2(O); Pulse Ox 97% on R/A; Weight 58.97 kg (R); nj1 Height 5 ft. 3 in. ; Pain 10/10; 14:00 BP 154 / 66; Pulse 64; Resp 18 S; Pulse Ox 98% on R/A; as6 15:00 BP 133 / 66; Pulse 63; Resp 15 S; Pulse Ox 99% on R/A; as6 15:51 BP 151 / 67; Pulse 66; Resp 18 S; Pulse Ox 99% on R/A; as6 12:57 Body Mass Index 23.03 (58.97 kg, 160.02 cm) nj1 12:57 Pain Scale: Adult nj1 MDM: 13:19 Patient medically screened. gb1 15:52 Differential diagnosis: dislocation, closed fracture, contusion, abrasion, tendonitis. gb1 Data reviewed: radiologic studies, plain films. ED course: 67-year-old female with left hip osteoarthritis. No sign of fracture or concern for dislocation at this time. I doubt septic joint as the patient appears well and is able to ambulate with moderate assistance. She has not had any repeated or worrisome falls. I did recommend tramadol and anti-inflammatories as well as follow-up with orthopedic surgery as an outpatient. Patient is clinically improved after morphine here in the emergency department.. 11/08 14:19 Order name: Hip Left 2 View XRAY; Complete Time: 15:43 gb1 Administered Medications: 14:45 Drug: morphine IM 5 mg IM once Route: IM; Site: right ventrogluteal; as6 15:52 Follow up: Response: No adverse reaction as6 Disposition Summary: 11/09/23 15:50 Discharge Ordered Notes: Location: Home gb1 Condition: Stable gb1 Diagnosis - Osteoarthritis of hip, unspecified gb1 - Pain in left hip gb1 Followup: gb1 - With: Jamir Rios MD - When: Upon discharge from the Emergency Department - Reason: If symptoms return Discharge Instructions: - Discharge Summary Sheet gb1 - Osteoarthritis gb1 - Hip Pain gb1 Forms: - Medication Reconciliation Form gb1 - Antibiotic Education gb1 - Prescription Opioid Use gb1 - Patient Portal Instructions gb1 - Leadership Thank You Letter gb1 Prescriptions: - Tramadol 50 mg Oral Tablet - take 1 tablet ORAL route every 8 hours as needed; 12 tablet; Refills: 0, gb1 Product Selection Permitted Signatures: Dispatcher [employer] EDMS Leandro Obregon RN RN as6 Anali Vail RN RN nj1 Christina Kearney MD MD gb1 Corrections: (The following items were deleted from the chart) 14:19 14:19 Hip Left 2 View+[email or web address] ordered. EDMS EDMS
[2023-11-09 16:47] VITALS: BP 151/67; TEMP 97.2; O2SAT 99
== END 2023-11-09 16:12 | disposition home or self-care (01) ==
LOC: ER 12:36
DX: M16.12 Unilateral primary osteoarthritis, left hip (principal); Z88.8 Allergy status to other drugs, medicaments and biological substances
CPT/HCPCS: 73502; J2270; 96372; 99284